=== PATIENT | female | born 1965 | race Caucasian/White ===

== ENCOUNTER 2020-03-05 17:45 | Emergency (ER) | payer OTHER, MEDICAID ==
[~2020-03-05] VITALS: Ht 165.1 cm; Wt 108.9 kg
[2020-03-05] MEDS ORDERED: HUMULIN R500 UNIT/1 SUBQ (17:50)
[2020-03-05] MEDS ORDERED: DULOXETINE HCL60 MG PO (17:50)
[2020-03-05] MEDS ORDERED: LEVO-T75 MCG PO (17:50)
[2020-03-05] MEDS ORDERED: ARIMIDEX PO (17:50)
[2020-03-05] MEDS ORDERED: DILTIAZEM 24HR240 M1 PO (17:51)
[2020-03-05] MEDS ORDERED: VITAMIN D250 MC1 PO (17:51)
[2020-03-05] MEDS ORDERED: MAGNESIUM250 M1 PO (17:51)
[2020-03-05] MEDS ORDERED: ATORVASTATIN CA80 MG PO (17:52)
[2020-03-05] MEDS ORDERED: LOPRESSOR50 MG PO (17:52)
[2020-03-05] MEDS ORDERED: ATIVAN0.5 M1 PO (17:53)
[2020-03-05] MEDS ORDERED: MOBIC7.5 M1 PO (17:53)
[2020-03-05] MEDS ORDERED: PROAIR HFA8.5 GM INH (17:53)
[2020-03-05] MEDS ORDERED: FLEXERIL PO (17:53)
[2020-03-05] MEDS ORDERED: NYSTATIN1 EAC3 TOP (17:54)
[2020-03-05] MEDS ORDERED: BENADRYL ALLERG25 MG PO (17:54)
[2020-03-05] MEDS ORDERED: PHENERGAN 25 MG25 M1 PO (17:54)
[2020-03-05 18:14] LABS: ABSOLUTE EOSINOPHILS 0.1 thou/uL (0.0-0.7); ABSOLUTE LYMPHOCYTES 2.3 thou/uL (0.8-5.3); ABSOLUTE MONOCYTES 0.7 thou/uL (0.0-1.2); ABSOLUTE NEUTROPHILS 6.5 thou/uL (1.6-8.1); BASOPHILS 0.3 %; HEMATOCRIT 42.2 % (37.0-47.0); HEMOGLOBIN 14.6 gm/dL (12.0-15.0); LYMPHOCYTES 24.1 %; MCH 30.5 pg (26.0-34.0); MCHC 34.5 g/dL (28.0-37.0); MCV 88.3 fL (80.0-100.0); MPV 9.6 fl. (7.2-11.1); NUCLEATED RBCS 0 /100WBC; PLATELET COUNT* 384 thou/uL (150-400); POLYS 67.6 %; RBC 4.78 mil/uL (4.20-5.00); RDW-CV 13.7 % (10.5-14.5); WBC 9.5 thou/uL (4.0-11.0)
[2020-03-05 18:28] LABS: APTT 24.8 Seconds (25.0-31.3); PROTIME 10.4 Seconds (9.20-11.50)
[2020-03-05 18:29] LABS: CALCIUM 8.9 mg/dL (8.5-10.1); CREATININE 1.2 mg/dL (0.6-1.3); POTASSIUM 4.5 mmol/L (3.5-5.1)
[2020-03-05] MEDS ORDERED: AMOXICILLIN 50500 MG PO (18:32)
[2020-03-05] MEDS ORDERED: NORCO 5-325 TA1 EAC2 PO (18:32)
[2020-03-05 18:41] LABS: ALBUMIN 3.7 g/dL (3.4-5.0); MAGNESIUM 1.8 mg/dL (1.8-2.4); TOTAL BILIRUBIN 0.4 mg/dL (<0.1-1.0); TOTAL PROTEIN 7.7 g/dL (6.4-8.2)
[2020-03-05 19:01] VITALS: BP 126/67
--- NOTE | 2020-03-06 10:40 | EKG ---
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
== END 2020-03-05 19:02 | disposition home or self-care (01) ==
LOC: M.ERS 17:45
PROVIDERS: Family Medicine
DX: R07.89 Other chest pain (principal); K02.9 Dental caries, unspecified; Z88.6 Allergy status to analgesic agent; Z88.1 Allergy status to other antibiotic agents; Z88.2 Allergy status to sulfonamides; Z91.030 Bee allergy status; Z91.018 Allergy to other foods; Z90.49 Acquired absence of other specified parts of digestive tract; Z90.10 Acquired absence of unspecified breast and nipple